=== PATIENT | male | born 1965 | race Caucasian/White ===

== ENCOUNTER 2016-08-18 20:48 | Observation (INO) ==
--- NOTE | 2016-08-18 20:54 | Emergency Department Note ---
Disposition Clinical Impression: Weakness, Dizziness Fever Qualifiers: Fever type: unspecified Qualified Code(s): R50.9 - Fever, unspecified Disposition: Admitted As Inpatient Condition: Fair Referrals: Bert Colvin MD [Primary Care Provider] - Forms: ED Satisfaction Letter Dizziness HPI - General Chief Complaint: ED Dizziness Stated Complaint: fever,dizzy, falls x2 today at home Time Seen by Provider: 08/18/16 20:50 Source: patient, EMS Mode of arrival: EMS Limitations: no limitations Nursing Notes Reviewed: Yes Vital Signs Reviewed: Yes - History of Present Illness HPI Narrative: She was brought in from a custodial. He has had difficulty with standing and walking today. He indicates when he goes to stand up he has been too weak to move his legs. He states he almost fell into a doorway. He has been having some chills with report of a fever to 102. He denies headache or visual changes. Denies sore throat, cough or shortness of breath. He does report a little bit of nausea and one episode of vomiting in the afternoon. Denies abdominal pain or diarrhea. He denies any localized extremity numbness, tingling or weakness. He is not sure of any ill exposures. He has not had any recent change in medicines. He has not had any reported head injury. Is very pleasant and smiling. He is very difficult to get a good history. He does tend to summarize about any question asked of him as "I just cannot walk". He cannot describe this feeling of dizziness. Pt Subjective Complaint: dizziness, difficulty walking Onset (ago): day(s) (1) Timing: gradual onset History of trauma: No Severity: moderate Improves with: rest Worsens with: movement Associated symptoms: Reports: fever, chills, malaise, weakness, nausea, vomiting. Denies: chest pain, confusion, diaphoresis, rash, shortness of breath , syncope, vision changes, palpitations - Related Data Home Medications Medication Instructions Recorded Confirmed Haloperidol 15 mg PO HS 01/18/16 03/16/16 OLANZapine [Olanzapine Odt] 20 mg PO HS 01/18/16 03/16/16 Propranolol HCl [Innopran Xl] 80 mg PO BID 01/18/16 03/16/16 Simvastatin [Zocor] 10 mg PO HS 01/18/16 03/16/16 Trazodone HCl 150 mg PO HS 01/18/16 03/16/16 Benztropine Mesylate 2 mg PO BID 08/18/16 08/18/16 Pantoprazole Sodium [Protonix] 40 mg PO DAILY 08/18/16 08/18/16 Allergies Allergy/AdvReac Type Severity Reaction Status Date / Time No Known Allergies Allergy Verified 08/18/16 21:03 All systems ED: reviewed and negative except as stated. Past Medical History - Past Medical History Attestation: Yes The following information was validated with the patient. Source: patient, old records reviewed, nursing notes reviewed Medical history: Reports: COPD, GERD, hyperlipidemia, hypertension Psychiatric history: Reports: other - Social History Smoking Status: Current every day smoker Smokeless Tobacco Status: No Alcohol use: Reports: none Drug use: Reports: none Physical Exam - General Limitations: no limitations General appearance: alert, in no apparent distress - Head Head exam: atraumatic, normocephalic, normal inspection - Eye Eye exam: Present: normal appearance, PERRL, EOMI. Absent: scleral icterus, conjunctival injection, nystagmus - ENT ENT exam: normal exam, normal oropharynx, mucous membranes moist - Neck Neck exam: Present: normal inspection, full ROM, trachea midline - Chest Chest inspection: Present: normal inspection, symmetric chest wall rise - Respiratory Respiratory exam: Present: normal lung sounds bilaterally. Absent: respiratory distress, wheezes, prolonged expiratory phase - Cardiovascular Cardiovascular exam: Present: regular rate, normal rhythm, tachycardia, normal heart sounds - Abdominal Exam Abdominal exam: Present: soft, Non-Tender, normal bowel sounds. Absent: tenderness, distention, guarding, rebound, rigidity - Extremities Exam Extremities exam: Present: normal inspection, full ROM, normal capillary refill. Absent: tenderness, pedal edema - Expanded Lower Extremity Exam Neurovascular/Tendon exam: Present: normal capillary refill. Absent: motor deficit, sensory deficit, tendon deficit Gait: not tested/not observed - Back Exam Back exam: Present: normal inspection, full ROM. Absent: tenderness, CVA tenderness (R), CVA tenderness (L) - Neurological Exam Neurological exam: Present: alert. Absent: motor sensory deficit - Psychiatric Psychiatric exam: Present: normal affect, normal mood - Skin Skin exam: Present: warm, dry, intact, normal color. Absent: rash, cyanosis, diaphoresis, pallor Course Course Narrative: The patient's present dictation and workup is discussed with Dr. Adrian. Given the patient's weakness and inability to stand and walk at this time, I felt is prudent to bring him in for observation and continued hydration. He has defervesced but he continues with weakness. He will be observed overnight and his disposition will be determined by his clinical condition in the morning. Verbal orders were obtained for his observation. Vital Signs Temperature 100.3 F H 08/18/16 20:50 Pulse Rate 106 08/18/16 20:50 Respiratory Rate 17 08/18/16 20:50 Blood Pressure 114/71 08/18/16 20:50 O2 Sat by Pulse Oximetry 93 L 08/18/16 20:50 Temperature 98.8 F 08/18/16 21:56 Pulse Rate 101 08/18/16 21:56 Respiratory Rate 20 08/18/16 21:56 Blood Pressure 105/62 08/18/16 21:56 O2 Sat by Pulse Oximetry 93 L 08/18/16 21:56 Oxygen Delivery Oxygen Delivery Room Air Dizziness - Differential Diagnosis Likely: benign paroxysmal positional vertigo, other occult medical condition - Medical Records Medical records reviewed: Yes I reviewed the patient's medical records. - Lab Data Lab results reviewed: Yes I reviewed the patient's lab results. Result diagrams: 08/18/16 21:35 08/18/16 21:35 Lab Results 08/18/16 08/18/16 08/18/16 Range/Units 21:35 21:35 22:05 WBC 7.1 (4.3-11.1) K/mcL RBC 3.85 L (4.19-5.50) M/mcL Hgb 12.7 L (12.9-16.9) g/dL Hct 35.7 L (37.5-50.1) % MCV 92.7 (83.0-100.0) fL MCH 33.0 (28.0-33.3) pg MCHC 35.6 H (31.6-35.5) g/dL RDW 12.5 (11.5-14.5) % Plt Count 160 (140-400) K/mcL MPV 9.3 L (9.4-12.4) fL Immature Gran % 0.3 (0-4) % Seg Neutrophils % 77.8 % Lymphocytes % 7.4 % Monocytes % 12.7 % Eosinophils % 0.8 % Basophils % 1.0 % Neutrophils # 5.6 (1.6-8.9) K/mcL Lymphocytes # 0.5 L (0.6-4.6) K/mcL Monocytes # 0.9 (0.0-1.3) K/mcL Eosinophils # 0.1 (0.0-0.6) K/mcL Basophils # 0.1 (0.0-0.2) K/mcL Sodium 131 L (136-145) mEq/L Potassium 3.9 (3.5-4.5) mEq/L Chloride 98 (98-109) mEq/L Carbon Dioxide 20 (19-29) mEq/L BUN 7 L (8-26) mg/dL Creatinine 1.08 (0.72-1.25) mg/dL Est GFR ( Amer) > 60 (> 60) Est GFR (Non-Af Amer) > 60 (> 60) BUN/Creatinine Ratio 6 (6-26) Glucose 102 H (70-99) mg/dL Calculated Osmolality 270 L (280-300) Calcium 8.4 L (8.6-10.8) mg/dL Urine Color Yellow (Yellow) Urine Clarity Clear (Clear) Urine pH 7.0 (5.0-8.0) pH Units Ur Specific [place] 1.015 (1.010-1.025) Urine Protein Negative (Neg-Trace) mg/dL Urine Glucose (UA) Normal (Normal) mg/dL Urine Ketones Trace H (Negative) mg/dL Urine Blood Trace-intact H (Negative) Urine Nitrite Negative (Negative) Urine Bilirubin Negative (Negative) Urine Urobilinogen Normal (Normal) mg/dL Ur Leukocyte Esterase Negative (Negative) Urine Microscopic RBC 3-5 H (0-3) per hpf Urine Microscopic WBC 0-3 (0-3) per hpf Ur Squamous Epith Cells Few (None-Few) per lpf Urine Bacteria Few (None-Few) per hpf Hyaline Casts Few (None-Few) per lpf Urine Mucus Few (Few) Ur Culture Indicated? NO (NO) - Radiology Data Radiology results reviewed: Yes I reviewed the patient's radiology results. Single view chest x-ray is performed. This does not demonstrate evidence for infiltrate, effusion, pneumothorax, foreign body or heart failure. The cardiac silhouette is normal. I do not see abnormality to the osseous structures of the chest. This is on my interpretation. CT head is performed. This is reviewed on bone and soft tissue windows. There is no evidence for acute intracranial bleed, shift, mass or edema. Mastoids and sinuses appear normal. There is no fracture evident. This is on my interpretation. Impressions Chest X-Ray 08/18/16 20:54 IMPRESSION: No acute process. D/ / Hernandez Tang MD / Hernandez Tang MD Interpreting Provider: Hernandez Tang MD Head CT 08/18/16 20:54 IMPRESSION: No acute intracranial abnormality. Mild paranasal sinus disease which may be acute or chronic D/ / Jose Francisco Perez MD / Jose Francisco Perez MD Interpreting Provider: Jose Francisco Perez MD
[2016-08-18] MEDS ORDERED: Acetaminophen 325 MG TABLET PO ONE (20:55)
[2016-08-18] MEDS ORDERED: 0.9 % Sodium Chloride 1,000 ML IVC ONE (20:55)
[2016-08-18] MEDS ORDERED: 0.9 % Sodium Chloride 1,000 ML IVC SCH (21:00)
[2016-08-18 21:47] LABS: Basophils # 0.1 K/mcL (0.0-0.2); Eosinophils # 0.1 K/mcL (0.0-0.6); Eosinophils % 0.8 %; Hematocrit 35.7 % (37.5-50.1); Hemoglobin 12.7 g/dL (12.9-16.9); Immature Granulocytes % 0.3 % (0-4); Lymphocytes # 0.5 K/mcL (0.6-4.6); Lymphocytes % 7.4 %; Mean Corpuscular HGB Conc 35.6 g/dL (31.6-35.5); Mean Corpuscular Volume 92.7 fL (83.0-100.0); Mean Platelet Volume 9.3 fL (9.4-12.4); Monocytes # 0.9 K/mcL (0.0-1.3); Monocytes % 12.7 %; Neutrophils # 5.6 K/mcL (1.6-8.9); Platelet Count 160 K/mcL (140-400); Red Blood Count 3.85 M/mcL (4.19-5.50); Red Cell Distribution Width 12.5 % (11.5-14.5); Segmented Neutrophils % 77.8 %
[2016-08-18 22:02] LABS: BUN/Creatinine Ratio 6 (6-26); Blood Urea Nitrogen 7 mg/dL (8-26); Calcium 8.4 mg/dL (8.6-10.8); Carbon Dioxide 20 mEq/L (19-29); Chloride 98 mEq/L (98-109); Glucose 102 mg/dL (70-99); Osmolality,Calculated 270 (280-300); Potassium 3.9 mEq/L (3.5-4.5); Sodium 131 mEq/L (136-145); eGFR For African Americans > 60 (> 60); eGFR For Non-African Americans > 60 (> 60)
[2016-08-18 22:09] LABS: Bilirubin,Urine Negative (Negative); Blood,Urine Trace-intact (Negative); Clarity,Urine Clear (Clear); Color,Urine Yellow (Yellow); Glucose,Urine (UA) Normal (Normal); Ketones,Urine Trace mg/dL (Negative); Leukocyte Esterase,Urine Negative (Negative); Nitrite,Urine Negative (Negative); Protein,Urine Negative (Neg-Trace); Specific Gravity,Urine 1.015 (1.010-1.025); Urobilinogen,Urine Normal (Normal)
[2016-08-18 22:17] LABS: Mucus,Urine Few (Few); Squamous Epithelial Cell,Urine Few per lpf (None-Few)
[2016-08-18 22:18] LABS: Bacteria,Urine Few per hpf (None-Few); WBC,Urine 0-3 per hpf (0-3)
[2016-08-18 22:20] LABS: Hyaline Casts,Urine Few per lpf (None-Few)
[2016-08-18] MEDS: 0.9 % Sodium Chloride 1,000 ML IVC SCH (23:05)
[2016-08-19] MEDS ORDERED: Ondansetron 4 MG/2 ML VIAL IVP PRN (00:01)
[2016-08-19] MEDS ORDERED: Naloxone 0.4 MG/ML INJ IVP PRN (00:01)
[2016-08-19] MEDS: 0.9 % Sodium Chloride 1,000 ML IVC SCH (05:01)
[2016-08-19] MEDS: Acetaminophen 325 MG TABLET PO PRN ×2 (08:34→13:48)
--- NOTE | 2016-08-19 11:57 | Internal Med History&Physical ---
Date of Encounter: 08/19/16 Time of Encounter: 11:25 Assessment and Plan (1) Weakness Current visit: Yes Status: Acute No objective weakness of legs seen on bedside examination. Will order PT and OT evaluations to assess walking ability. (2) Fever Current visit: Yes Status: Acute Suspect viral infection. Chest x-ray and UA were unremarkable. Recheck labs in a.m. Qualifiers: Fever type: unspecified Qualified Code(s): R50.9 - Fever, unspecified (3) Anemia Current visit: Yes Status: Acute We will order anemia testing in a.m. Qualifiers: Anemia type: unspecified type Qualified Code(s): D64.9 - Anemia, unspecified (4) Hyponatremia Current visit: Yes Status: Acute Recheck labs in a.m. (5) Microhematuria Current visit: Yes Status: Acute UA showed 3-5 RBCs and trace amount of blood. Review of past records show CT of abdomen/pelvis October 2015 with right kidney appearance abnormality due to normal variant or right renal mass. We will recheck abdominal/pelvic CT. Internal Medicine - H&P: HPI Chief complaint: Weakness with falls Admitted From: Home Plans for Post Hospital Care: Home History of present illness: Mr. Junior is a 51 year old male who was brought to the emergency room from a [facility] after he reported having weakness in his legs and falling. There was no significant injury sustained with the falls. He reports leg weakness came on abruptly 2-3 days earlier. He denies any bowel or bladder control problems or any pain in his back or injury. He was evaluated in emergency room and admitted to [facility] floor for ongoing care needs. He states the leg weakness is bilaterally symmetric. He states he had a similar previous episode approximately 10 years ago and was told he had "schizophrenia". He regained ability to walk after proximately 3 days. He denies large distribution strokes or seizures. Past Med Surg Social Fam HX - Past Medical History Medical history: COPD, GERD, hyperlipidemia, hypertension Psychiatric history: schizophrenia - Social History Smoking Status: Current every day smoker Smokeless Tobacco Status: No Alcohol use: none Drug use: none Internal Medicine - H&P: Meds Haloperidol 15 mg PO HS 01/18/16 [History] OLANZapine [Olanzapine Odt] 20 mg PO HS 01/18/16 [History] Propranolol HCl [Innopran Xl] 80 mg PO BID 01/18/16 [History] Simvastatin [Zocor] 10 mg PO HS 01/18/16 [History] Trazodone HCl 150 mg PO HS 01/18/16 [History] Benztropine Mesylate 2 mg PO BID 08/18/16 [History] Pantoprazole Sodium [Protonix] 40 mg PO DAILY 08/18/16 [History] Allergies No Known Allergies Allergy (Verified 08/18/16 21:03) All Systems PM: A 10-system review of systems was performed and is negative for pertinent findings except as documented above in the HPI. Review of systems: Gen.: He states his weight is been stable the past 2 months Cardiovascular: He has history of hypertension but denies LA heart failure angina DVT or pulmonary embolus Respiratory: He claims he has smoked since age 18 up to 7 packs per day. He has a diagnosis of COPD per available records. 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 GI: Has a diagnosis of GERD but denies disorders of his liver gallbladder or exocrine pancreas : He denies hematuria dysuria or kidney stones Neurologic: As per history of present illness Endocrine: He has hyperlipidemia denies diabetes or thyroid disease Hematology/oncology: Denies blood disorders or cancers. He has a diagnosis of anemia Psychiatric: He states he has been diagnosed with schizophrenia, bipolar disorder, and anxiety Musk skeletal: He fractured both feet from a fall several years ago but made full recovery. He denies any other bone joint or muscle disorders. - Constitutional Vitals: Temp Pulse Resp BP Pulse Ox 98.9 F 107 22 105/59 91 L 08/19/16 09:12 08/19/16 09:12 08/19/16 09:12 08/19/16 09:12 08/19/16 09:12 Exam: General: He is a well developed well-nourished male lying in bed who appears in no acute distress HEENT: Head is atraumatic and normocephalic. Eyes: EOMI. There is no scleral icterus. Mouth: Mucosa is moist. Neck: Supple and nontender. There is no thyromegaly or adenopathy noted. Heart: Regular without murmurs gallops or ectopics. Lungs: No wheezes or crackles are heard. Abdomen: Soft and nontender. No masses or guarding are noted. Extremities: There is no cyanosis edema or clubbing noted. Dorsalis pedis and posttibial pulses are 1-2 over 2 bilaterally. Neurologic: Mental status: He is talkative and seems to be a fair to good historian. He has a slight speech stuttering impediment. Cranial nerves: Smile is symmetric. Forehead wrinkles bilaterally. Tongue protrudes midline. EOMI. Motor: He is able to lift both legs off the bed. Ankle flexion and extension strength against resistance is normal and symmetric. There is no pronator drift of the arms. Cerebellar: Finger to nose is intact bilaterally. Skin: Warm and dry Internal Med - H&P Results - Labs CBC & Chem 7: 08/18/16 21:35 08/18/16 21:35 - VTE Documentation of Mechanical Device: Graduated compression elastic hosiery
[2016-08-20 05:29] LABS: Basophils % 0.3 %; Hematocrit 33.1 % (37.5-50.1); Hemoglobin 11.6 g/dL (12.9-16.9); Immature Granulocytes % 0.3 % (0-4); Lymphocytes # 0.8 K/mcL (0.6-4.6); Lymphocytes % 11.1 %; Mean Corpuscular Hemoglobin 32.7 pg (28.0-33.3); Mean Corpuscular Volume 93.2 fL (83.0-100.0); Mean Platelet Volume 9.4 fL (9.4-12.4); Monocytes # 0.7 K/mcL (0.0-1.3); Monocytes % 10.6 %; Neutrophils # 5.4 K/mcL (1.6-8.9); Platelet Count 131 K/mcL (140-400); Red Blood Count 3.55 M/mcL (4.19-5.50); Red Cell Distribution Width 12.6 % (11.5-14.5); Segmented Neutrophils % 77.7 %
[2016-08-20 05:45] LABS: Alanine Aminotransferase 9 Units/L (0-55); Albumin 3.2 g/dL (3.5-5.0); Albumin/Globulin Ratio 1.3 (1.1-2.2); Alkaline Phosphatase 44 Units/L (38-126); Aspartate Amino Transferase 23 Units/L (5-34); BUN/Creatinine Ratio 9 (6-26); Bilirubin,Total 0.5 mg/dL (0.2-1.2); Blood Urea Nitrogen 8 mg/dL (8-26); Carbon Dioxide 20 mEq/L (19-29); Chloride 100 mEq/L (98-109); Globulin 2.4 g/dL (2.4-3.5); Glucose 94 mg/dL (70-99); Osmolality,Calculated 272 (280-300); Potassium 3.7 mEq/L (3.5-4.5); Sodium 132 mEq/L (136-145); Total Protein 5.6 g/dL (6.0-8.3); eGFR For African Americans > 60 (> 60); eGFR For Non-African Americans > 60 (> 60)
[2016-08-20 10:00] LABS: % Iron Saturation 5 % (20-55); Iron 10 mcg/dL (65-175); Transferrin 158 mg/dL (174-364)
[2016-08-20 10:20] LABS: Ferritin 287 ng/ml (22-275)
[2016-08-20] MEDS ORDERED: Ondansetron ODT 4 MG TAB.RAPDIS SL PRN (10:22)
[2016-08-20 10:32] LABS: Folate 5.8 ng/mL (7.0-31.4)
--- NOTE | 2016-08-20 10:52 | Internal Med Progress Note ---
Date of Encounter: 08/20/16 Time of Encounter: 10:40 - Assessment and plan (1) Weakness Current Visit: Yes Status: Acute Assessment and plan: August 20. Continue PT and OT interventions. (2) Influenza B Current Visit: Yes Status: Acute Assessment and plan: August 20. Continue Tamiflu (3) Anemia Current Visit: Yes Status: Acute Assessment and plan: August 20. Hemoglobin has decreased to 11.6. Anemia testing shows iron 10, transferrin saturation 5%, and ferritin 287. Folate was low at 5.8. We will prescribe folate and ferrous sulfate with vitamin C. Qualifiers: Anemia type: unspecified type Qualified Code(s): D64.9 - Anemia, unspecified (4) Hyponatremia Current Visit: Yes Status: Acute Assessment and plan: August 20. Improving. Continue present management (5) Microhematuria Current Visit: Yes Status: Acute Assessment and plan: August 20. Abdominal/pelvis CT showed no acute abnormality. We will observe without further workup. - Subjective Interval history: August 20. He has no new complaints and feels better. - Constitutional Vitals: Temp Pulse Resp BP Pulse Ox 98.8 F 103 16 113/77 93 L 08/20/16 09:50 08/20/16 09:50 08/20/16 09:50 08/20/16 09:50 08/20/16 09:50 Exam: He is resting comfortably in bed and appears in no acute distress. His affect is bright and cheerful. I reviewed the physical therapy evaluation and note he walked 80 feet. His influenza test came back positive for influenza B. Internal Medicine: Result - Labs CBC & Chem 7: 08/20/16 05:08 08/20/16 05:08 Labs: Short CBC 08/20/16 Range/Units 05:08 WBC 7.0 (4.3-11.1) K/mcL Hgb 11.6 L (12.9-16.9) g/dL Hct 33.1 L (37.5-50.1) % Plt Count 131 L (140-400) K/mcL Neutrophils # 5.4 (1.6-8.9) K/mcL BMP 08/20/16 05:08 Sodium 132 L Potassium 3.7 Chloride 100 Carbon Dioxide 20 BUN 8 Creatinine 0.85 Glucose 94 Calcium 8.0 L Liver Function 08/20/16 Range/Units 05:08 Total Bilirubin 0.5 (0.2-1.2) mg/dL AST 23 (5-34) Units/L ALT 9 (0-55) Units/L Alkaline Phosphatase 44 (38-126) Units/L Albumin 3.2 L (3.5-5.0) g/dL - Impressions Impressions Abdomen/Pelvis CT 08/19/16 12:13 IMPRESSION: 1. No acute abnormality in the abdomen or pelvis. 2. Unchanged appearance of the right kidney with cortical scarring. No obstructive uropathy or urinary collecting system calculi. 3. Moderately increased stool in the colon. D/ / Hernandez Tang MD / Hernandez Tang MD Interpreting Provider: Hernandez Tang MD - VTE Documentation of Mechanical Device: Graduated compression elastic hosiery Consult Discharge Plan - Plan Referrals: Bert Colvin MD [Primary Care Provider] - 1 week
[2016-08-20] MEDS: Acetaminophen 325 MG TABLET PO PRN (17:18)
[2016-08-21] MEDS: Ascorbic Acid 500 MG TABLET PO SCH ×2 (06:32→08:14)
[2016-08-21 06:55] VITALS: BP 118/74
[2016-08-21] MEDS ORDERED: Folic Acid 1 MG TABLET PO SCH (09:00)
--- NOTE | 2016-08-21 10:56 | Discharge Summary ---
Date of Encounter: 08/21/16 Time of Encounter: 10:45 - Discharge Diagnosis (1) Influenza B Priority: Primary Status: Acute (2) Weakness Priority: Secondary Status: Acute (3) Anemia Priority: Secondary Status: Acute Qualifiers: Anemia type: unspecified type Qualified Code(s): D64.9 - Anemia, unspecified (4) Hyponatremia Priority: Secondary Status: Acute (5) Microhematuria Priority: Secondary Status: Acute - Discharge Medications Prescriptions: Ascorbic Acid [Vitamin C] 500 mg PO DAILY #30 tablet Ferrous Sulfate 325 mg PO DAILY #30 tablet Folic Acid 1 mg PO DAILY #30 tablet Oseltamivir [Tamiflu] 75 mg PO BID #8 capsule Home Medications: Haloperidol 15 mg PO HS 01/18/16 [History] OLANZapine [Olanzapine Odt] 20 mg PO HS 01/18/16 [History] Propranolol HCl [Innopran Xl] 80 mg PO BID 01/18/16 [History] Simvastatin [Zocor] 10 mg PO HS 01/18/16 [History] Trazodone HCl 150 mg PO HS 01/18/16 [History] Benztropine Mesylate 2 mg PO BID 08/18/16 [History] Ascorbic Acid [Vitamin C] 500 mg PO DAILY #30 tablet 08/21/16 [Rx] Ferrous Sulfate 325 mg PO DAILY #30 tablet 08/21/16 [Rx] Folic Acid 1 mg PO DAILY #30 tablet 08/21/16 [Rx] Oseltamivir [Tamiflu] 75 mg PO BID #8 capsule 08/21/16 [Rx] Allergies/Adverse Reactions: Allergies No Known Allergies Allergy (Verified 08/18/16 21:03) Procedures/tests Complete & Pending: Procedures Performed prior 72 hours Category Date Time Status CT abd pelvis w iv no oral [CT] Routine Cat Scan 08/19/16 12:13 Completed Date of admission: 08/18/16 22:55 Primary care physician: Bert Colvin MD Consults: 08/19/16 12:54 Consult to Occupational Therapy [CONS] Routine Comment: Evaluate, develop and implement POC Consult to Physical Therapy [CONS] Routine Comment: Evaluate, develop and implement POC - Patient Status Disposition: Home, Self-Care Condition: Fair Overall status at discharge: patient is progressing back to baseline - Discharge Instructions Follow Up With: Bert Colvin MD [Primary Care Provider] - 1 week - Diet and Activity Activity: resume usual activities as tolerated Diet: advance to your usual diet Hospital course: Mr. Junior is a 51 year old male who was brought to the emergency room from a intermediate after he reported having weakness in his legs and falling. There was no significant injury sustained with the falls. He reports leg weakness came on abruptly 2-3 days earlier. He denies any bowel or bladder control problems or any pain in his back or injury. He was evaluated in emergency room and admitted to [facility] for ongoing care needs. Initial orders were written by the emergency room physician. I saw him on August 19 and performed history and physical. He had physical therapy and occupational therapy evaluations with ongoing interventions. He was able to walk without difficulty by the time of discharge. Influenza testing returned positive results for influenza B. He was started on Tamiflu and this was tolerated well. His fever gradually improved during hospitalization. He will continue Tamiflu for 4 additional days after discharge. Anemia testing was done and showed low folate at 5.8. There was also low serum iron and transferrin saturations. He will be given folate and iron supplements at discharge. A CT of the abdomen and pelvis was done to further evaluate microhematuria and questionable previous CT abnormality of the right kidney from a October 2015 study. There was no significant pathology seen. His sodium slightly improved during hospitalization. His PCP Dr. Colvin can continue to monitor this. On August 21 and felt he was stable for discharge home. He will follow with his PCP Dr. Colvin within one week. I encouraged him to discontinue smoking. - Time Spent with Patient Total time spent providing and/or coordinating discharge services: - Constitutional Vitals: Temp Pulse Resp BP Pulse Ox 99.3 F 70 16 118/74 93 L 08/21/16 06:47 08/21/16 06:47 08/21/16 06:47 08/21/16 06:47 08/21/16 06:47 - VTE Documentation of Mechanical Device: Graduated compression elastic hosiery
== END 2016-08-21 13:20 | disposition home or self-care (01) ==
LOC: INPPIK 20:48 → EMEROOPIK 20:48 → INPPIK 23:19
PROVIDERS: ADMIT Emergency Medicine; ATTEND Internal Medicine